=== PATIENT | female | born 1965 ===

== ENCOUNTER 2018-06-30 07:21 | Day surgery (SDC) | payer OTHER ==
[2018-06-30] MEDS ORDERED: Lactated Ringer's 500 ML IV ONE (08:02)
[2018-06-30] MEDS ORDERED: Midazolam 2 MG/2 ML VIAL ONE (09:26)
[2018-06-30] MEDS ORDERED: Propofol 10 mg/ml Inj (20 ML) ONE (09:27)
[2018-06-30 10:03] VITALS: TEMP 97
[2018-06-30 10:20] VITALS: BP 107/63; PULSE 82; RESP 18; O2SAT 97
== END 2018-06-30 12:31 | disposition home or self-care (01) ==
LOC: H.ENDO 07:21
PROVIDERS: ATTEND Internal Medicine Gastroenterology
DX: Z12.11 Encounter for screening for malignant neoplasm of colon (principal); E78.5 Hyperlipidemia, unspecified; K64.8 Other hemorrhoids; K57.30 Diverticulosis of large intestine without perforation or abscess without bleeding; K29.50 Unspecified chronic gastritis without bleeding
CPT/HCPCS: 43239; 45378; 88305; J2001; J2250; J2704; J7120